=== PATIENT | male | born 1965 | race Caucasian/White ===

== ENCOUNTER 2018-10-11 16:21 | Emergency (ER) | payer BC ==
[2018-10-11] MEDS ORDERED: Sodium Chloride 0.9% 1,000 ML IV ONE (16:46)
[2018-10-11] MEDS ORDERED: Ondansetron 4 MG/2 ML SDV IVPUSH ONE (16:47)
[2018-10-11] MEDS ORDERED: Ketorolac 30 MG/ML SDV IVPUSH ONE (16:47)
--- NOTE | 2018-10-11 16:57 | EDM.PDOC ---
ED HPI GENERAL MEDICAL PROBLEM - General Chief Complaint: Genitourinary Problem Stated Complaint: STOMACH PAINS Time Seen by Provider: 10/11/18 16:31 Source of Information: Reports: Patient History Limitations: Reports: No Limitations - History of Present Illness INITIAL COMMENTS - FREE TEXT/NARRATIVE: HISTORY AND PHYSICAL: History of present illness: Patient is a 53-year-old male presents to the ED today with concern of right lower quadrant pain. Patient states he's had this right lower quadrant pain intermittently over the last 2 months but today the pain is now a 10 out of 10. Patient states he has vomited 2 times today due to the pain. Patient states many years ago he had issues with kidney stones but states that his pain today does not feel the same as when he had kidney stones in the past. Patient states he also has a history of migraines but denies any other health history. Patient states he has not taken anything today for his symptoms. Patient denies fever, chills, chest pain, shortness of breath, or cough. Denies headache, neck stiff ness, change in vision, syncope, or near syncope. Denies diarrhea, constipation, or dysuria. Has not noted any blood in urine or stool. Patient has been eating and drinking appropriately prior to onset of symptoms. Review of systems: As per history of present illness and below otherwise all systems reviewed and negative. Past medical history: As per history of present illness and as reviewed below otherwise noncontributory. Surgical history: As per history of present illness and as reviewed below otherwise noncontributory. Social history: See social history for further information Family history: As per history of present illness and as reviewed below otherwise noncontributory. Physical exam: General: Patient is alert, oriented, and in no acute distress. Patient sitting comfortably on exam table. HEENT: Atraumatic, normocephalic, pupils equal and reactive bilaterally, negative for conjunctival pallor or scleral icterus, mucous membranes dry, TMs normal bilaterally, throat clear, neck supple, nontender, trachea midline. No drooling or trismus noted. No meningeal signs. No hot potato voice noted. Lungs: Clear to auscultation, breath sounds equal bilaterally, chest nontender. Heart: S1S2, regular rate and rhythm without overt murmur Abdomen: Soft, nondistended. Moderate to severe pain to palpation of the right lower quadrant with guarding. Positive rebound. Negative for masses or hepatosplenomegaly. Negative for costovertebral tenderness. Pelvis: Stable nontender. Genitourinary: Deferred. Rectal: Deferred. Skin: Intact, warm, dry. No lesions or rashes noted. Extremities: Atraumatic, negative for cords or calf pain. Neurovascular unremarkable. Neuro: Awake, alert, oriented. Cranial nerves II through XII unremarkable. Cerebellum unremarkable. Motor and sensory unremarkable throughout. Exam nonfocal. Notes: Dr. Rangel verbally involved in patient care. Patient pain is well controlled in ED. Dr. Jeffrey, urology on-call, was consulted on patient. Per Dr. Jeffrey, will send home with Cipro as well as some pain medications for tonight. Patient is to remain NPO and [facility] at [address] Jeffrey will meet patient there. Voices understanding and is agreeable to plan of care. Denies any further questions or concerns at this time. Diagnostics: CBC, CMP, UA, EKG, troponin, chest x-ray, lipase, abd/pelvic CT Therapeutics: MS, Toradol, Zofran Prescription: Cipro, [place] #6 Impression: Ureterolithiasis Urinary Tract Infection Dehydration Nephrolithiasis Plan: 1. Take medication as prescribed. [facility] morning at 8am to meet with Dr. Metcalf. DO NOT eat or drink until you are seen by Dr. Metcalf. 2. You can also alternate ibuprofen and Tylenol as directed for pain and discomfort. 3. Return to the ED as needed and as discussed. Definitive disposition and diagnosis as appropriate pending reevaluation and review of above. Right Abdomen Pain Score (Numeric/FACES): 10 - Related Data Allergies Allergy/AdvReac Type Severity Reaction Status Date / Time No Known Allergies Allergy Verified 10/11/18 16:36 Home Meds: Home Meds SUMAtriptan Succinate [Imitrex] 4 mg IM ASDIRECTED PRN 10/11/18 [History] Past Medical History HEENT History: Reports: None Cardiovascular History: Reports: None Respiratory History: Reports: None Gastrointestinal History: Reports: None Genitourinary History: Reports: None, Renal Calculus Musculoskeletal History: Reports: None Neurological History: Reports: Migraines Psychiatric History: Reports: None Endocrine/Metabolic History: Reports: None Hematologic History: Reports: None Immunologic History: Reports: None Oncologic (Cancer) History: Reports: None Dermatologic History: Reports: None - Infectious Disease History Infectious Disease History: Reports: None - Past Surgical History Head Surgeries/Procedures: Reports: None Social & Family History - Tobacco Use Smoking Status *Q: Current Every Day Smoker Years of Tobacco use: 35 Packs/Tins Daily: 0.3 Second Hand Smoke Exposure: No - Caffeine Use Caffeine Use: Reports: Coffee - Recreational Drug Use Recreational Drug Use: No ED ROS GENERAL - Review of Systems Review Of Systems: ROS reveals no pertinent complaints other than HPI. ED EXAM, GENERAL - Physical Exam Exam: See Below (See dictation) Course - Vital Signs Last Recorded V/S: Last Vital Signs Temp 36.5 C 10/11/18 18:43 Pulse 66 10/11/18 18:43 Resp 20 10/11/18 16:33 BP 119/72 10/11/18 18:43 Pulse Ox 99 10/11/18 18:43 - Orders/Labs/Meds Orders: Active Orders 24 hr Category Date Time Status EKG Documentation Completion [RC] STAT Care 10/11/18 16:46 Active CULTURE URINE [RM] Stat Lab 10/11/18 16:44 Received Labs: Laboratory Tests 10/11/18 10/11/18 10/11/18 Range/Units 16:44 16:50 16:50 WBC 11.96 H (4.0-11.0) K/uL RBC 4.85 (4.50-5.90) M/uL Hgb 14.7 (13.0-17.0) g/dL Hct 42.3 (38.0-50.0) % MCV 87.2 (80.0-98.0) fL MCH 30.3 (27.0-32.0) pg MCHC 34.8 (31.0-37.0) g/dL RDW Std Deviation 41.7 (28.0-62.0) fl RDW Coeff of Yasimn 13 (11.0-15.0) % Plt Count 279 (150-400) K/uL MPV 9.70 (7.40-12.00) fL Neut % (Auto) 58.1 (48.0-80.0) % Lymph % (Auto) 31.5 (16.0-40.0) % Lanier % (Auto) 9.5 (0.0-15.0) % Eos % (Auto) 0.6 (0.0-7.0) % Baso % (Auto) 0.3 (0.0-1.5) % Neut # (Auto) 7.0 H (1.4-5.7) K/uL Lymph # (Auto) 3.8 H (0.6-2.4) K/uL Lanier # (Auto) 1.1 H (0.0-0.8) K/uL Eos # (Auto) 0.1 (0.0-0.7) K/uL Baso # (Auto) 0.0 (0.0-0.1) K/uL Nucleated RBC % 0.0 /100WBC Nucleated RBCs # 0 K/uL Sodium 142 (136-148) mmol/L Potassium 3.8 (3.5-5.1) mmol/L Chloride 105 (98-107) mmol/L Carbon Dioxide 23.5 (21.0-32.0) mmol/L BUN 20 H (7.0-18.0) mg/dL Creatinine 1.0 (0.8-1.3) mg/dL Est Cr Clr Drug Dosing 101.61 mL/min Estimated GFR (MDRD) > 60.0 ml/min Glucose 103 (74-106) mg/dL Calcium 10.0 (8.5-10.1) mg/dL Total Bilirubin 0.7 (0.2-1.0) mg/dL AST 16 (15-37) IU/L ALT 27 (14-63) IU/L Alkaline Phosphatase 57 (46-116) U/L Troponin I (0.000-0.056) ng/mL Total Protein 7.1 (6.4-8.2) g/dL Albumin 4.2 (3.4-5.0) g/dL Globulin 2.9 (2.6-4.0) g/dL Albumin/Globulin Ratio 1.4 (0.9-1.6) Lipase 142 (73-393) U/L Urine Color YELLOW Urine Appearance SLT CLOUDY Urine pH 5.5 (5.0-8.0) Ur Specific [place] 1.025 (1.001-1.035) Urine Protein 30 H (NEGATIVE) mg/dL Urine Glucose (UA) NEGATIVE (NEGATIVE) mg/dL Urine Ketones NEGATIVE (NEGATIVE) mg/dL Urine Occult Blood LARGE H (NEGATIVE) Urine Nitrite NEGATIVE (NEGATIVE) Urine Bilirubin NEGATIVE (NEGATIVE) Urine Urobilinogen 0.2 (<2.0) EU/dL Ur Leukocyte Esterase TRACE H (NEGATIVE) Urine RBC 12-17 (0-2/HPF) Urine WBC 3-6 (0-5/HPF) Ur Epithelial Cells RARE (NONE-FEW) Urine Bacteria RARE (NEGATIVE) 10/11/18 Range/Units 16:50 WBC (4.0-11.0) K/uL RBC (4.50-5.90) M/uL Hgb (13.0-17.0) g/dL Hct (38.0-50.0) % MCV (80.0-98.0) fL MCH (27.0-32.0) pg MCHC (31.0-37.0) g/dL RDW Std Deviation (28.0-62.0) fl RDW Coeff of Yasmin (11.0-15.0) % Plt Count (150-400) K/uL MPV (7.40-12.00) fL Neut % (Auto) (48.0-80.0) % Lymph % (Auto) (16.0-40.0) % Lanier % (Auto) (0.0-15.0) % Eos % (Auto) (0.0-7.0) % Baso % (Auto) (0.0-1.5) % Neut # (Auto) (1.4-5.7) K/uL Lymph # (Auto) (0.6-2.4) K/uL Lanier # (Auto) (0.0-0.8) K/uL Eos # (Auto) (0.0-0.7) K/uL Baso # (Auto) (0.0-0.1) K/uL Nucleated RBC % /100WBC Nucleated RBCs # K/uL Sodium (136-148) mmol/L Potassium (3.5-5.1) mmol/L Chloride (98-107) mmol/L Carbon Dioxide (21.0-32.0) mmol/L BUN (7.0-18.0) mg/dL Creatinine (0.8-1.3) mg/dL Est Cr Clr Drug Dosing mL/min Estimated GFR (MDRD) ml/min Glucose (74-106) mg/dL Calcium (8.5-10.1) mg/dL Total Bilirubin (0.2-1.0) mg/dL AST (15-37) IU/L ALT (14-63) IU/L Alkaline Phosphatase (46-116) U/L Troponin I < 0.050 (0.000-0.056) ng/mL Total Protein (6.4-8.2) g/dL Albumin (3.4-5.0) g/dL Globulin (2.6-4.0) g/dL Albumin/Globulin Ratio (0.9-1.6) Lipase (73-393) U/L Urine Color Urine Appearance Urine pH (5.0-8.0) Ur Specific [place] (1.001-1.035) Urine Protein (NEGATIVE) mg/dL Urine Glucose (UA) (NEGATIVE) mg/dL Urine Ketones (NEGATIVE) mg/dL Urine Occult Blood (NEGATIVE) Urine Nitrite (NEGATIVE) Urine Bilirubin (NEGATIVE) Urine Urobilinogen (<2.0) EU/dL Ur Leukocyte Esterase (NEGATIVE) Urine RBC (0-2/HPF) Urine WBC (0-5/HPF) Ur Epithelial Cells (NONE-FEW) Urine Bacteria (NEGATIVE) Meds: Medications Discontinued Medications Generic Name Dose Route Start Last Admin Trade Name Freq PRN Reason Stop Dose Admin Sodium Chloride 1,000 mls @ 999 mls/hr 10/11/18 16:46 10/11/18 16:58 Normal Saline IV 10/11/18 17:46 999 mls/hr BOLUS ONE Administration Iopamidol 100 ml 10/11/18 17:47 10/11/18 17:54 Isovue Multipack-370 (76%) IVPUSH 10/11/18 17:48 100 ml ONETIME STA Administration Ketorolac Tromethamine 30 mg 10/11/18 16:47 10/11/18 16:57 Toradol IVPUSH 10/11/18 16:48 30 mg ONETIME ONE Administration Ondansetron HCl 4 mg 10/11/18 16:47 10/11/18 16:57 Zofran IVPUSH 10/11/18 16:48 4 mg ONETIME ONE Administration Departure - Departure Time of Disposition: 19:04 Disposition: Home, Self-Care 01 Clinical Impression: Ureterolithiasis, Dehydration, Nephrolithiasis Urinary tract infection Qualifiers: Urinary tract infection type: acute cystitis Hematuria presence: without hematuria Qualified Code(s): N30.00 - Acute cystitis without hematuria - Discharge Information Referrals: PCP,None [Primary Care Provider] - Forms: ED Department Discharge Additional Instructions: The following information is given to patients seen in the emergency department who are being discharged to home. This information is to outline your options for follow-up care. We provide all patients seen in our emergency department with a follow-up referral. The need for follow-up, as well as the timing and circumstances, are variable depending upon the specifics of your emergency department visit. If you don't have a primary care physician on staff, we will provide you with a referral. We always advise you to contact your personal physician following an emergency department visit to inform them of the circumstance of the visit and for follow-up with them and/or the need for any referrals to a consulting specialist. The emergency department will also refer you to a specialist when appropriate. This referral assures that you have the opportunity for follow-up care with a specialist. All of these measure are taken in an effort to provide you with optimal care, which includes your follow-up. Under all circumstances we always encourage you to contact your private physician who remains a resource for coordinating your care. When calling for follow-up care, please make the office aware that this follow-up is from your recent emergency room visit. If for any reason you are refused follow-up, please contact the [facility] Emergency Department at and asked to speak to the emergency department charge nurse. [facility] [address] [place] [id number] [address] [facility] [address] [place] [id number] 1. Take medication as prescribed. [facility] as discussed tomorrow morning at 8am to meet with Dr. Metcalf. DO NOT eat or drink until you are seen by Dr. Metcalf. 2. You can also alternate ibuprofen and Tylenol as directed for pain and discomfort. 3. Return to the ED as needed and as discussed. - My Orders Last 24 Hours: My Active Orders 10/11/18 16:44 CULTURE URINE [RM] Stat 10/11/18 16:46 EKG Documentation Completion [RC] STAT - Assessment/Plan Last 24 Hours: My Active Orders 10/11/18 16:44 CULTURE URINE [RM] Stat 10/11/18 16:46 EKG Documentation Completion [RC] STAT
[2018-10-11 17:39] LABS: CHLORIDE,CL 105 mmol/L (98-107); SODIUM,NA 142 mmol/L (136-148)
[2018-10-11] MEDS ORDERED: Iopamidol 755 MG/ML 500 ML Multipack Bottle IVPUSH STA (17:47)
--- NOTE | 2018-10-11 18:40 | CT ---
INDICATION: Right lower quadrant pain with nausea and vomiting. Patient states history of calculi causing renal failure 5-6 years ago. COMPARISON: None available TECHNIQUE: CT examination of the abdomen and pelvis was performed with the uneventful intravenous administration of 100 cc of Isovue 370 while 3 mm thick axial sections were obtained from the lung bases through the pubic symphysis. Oral contrast was not administered. Please note that all CT scans at this facility use dose modulation, iterative reconstruction, and/or weight-based dosing when appropriate to reduce radiation dose to as low as reasonably achievable. FINDINGS: In the abdomen, the liver, spleen, pancreas, and adrenals are normal in appearance. There are bilateral renal calculi, with moderate right hydronephrosis and no hydronephrosis on the left. The calculus on the right located in the UPJ measures 9 x 7 millimeters and produces the hydronephrosis. A nonobstructive calculus in the left renal pelvis measures 14 x 10 millimeters. There is a tiny 1 millimeter nonobstructive calculus in the upper pole of the right kidney. The gallbladder is normal in appearance. The abdominal aorta is normal in caliber with no sign of dilatation. There is no sign of retroperitoneal mass or adenopathy. The stomach, loops of small bowel, and ascending and descending colon in the abdomen are normal in appearance. There is mild diverticulosis of the transverse colon with no sign of diverticulitis. In the pelvis, the appendix is normal in appearance with no sign of inflammatory process. The loops of small bowel and colon in the pelvis are normal in appearance. The prostate is normal in appearance. The urinary bladder is normal in appearance. There is no sign of pelvic or inguinal mass or adenopathy. There is mild patchy atelectasis in the posterior lung bases. There is mild scoliosis of the lumbar spine convex towards the right. There is mild disc degenerative disease throughout the lumbar spine. IMPRESSION: CT of the abdomen shows moderate right hydronephrosis from a right UPJ calculus measuring 9 x 7 millimeters. An additional tiny nonobstructive calculus is seen in the upper pole of the right kidney. The left kidney has a nonobstructive calculus in the renal pelvis measuring 14 x 10 millimeters. Mild diverticulosis of the transverse colon with no sign of diverticulitis. Normal CT of the pelvis with contrast. Please note that all CT scans at this facility use dose modulation, iterative reconstruction, and/or weight-based dosing when appropriate to reduce radiation dose to as low as reasonably achievable. Dictated by Sabas Otero MD @ Oct 11 2018 6:28PM Signed by Dr. Sabas Otero @ Oct 11 2018 6:37PM
--- NOTE | 2018-10-11 18:57 | CR ---
INDICATION: Chest pain. TECHNIQUE: PA chest. FINDINGS: Linear left basilar subsegmental atelectasis or fibrosis. No consolidative infiltrates or pneumothorax. Normal heart size and pulmonary vascular pattern with no pleural effusions. IMPRESSION: Minimal left basilar subsegmental atelectasis/fibrosis. Dictated by Beau King MD @ Oct 11 2018 6:53PM Signed by Dr. Beau King @ Oct 11 2018 6:54PM
== END 2018-10-11 19:15 | disposition home or self-care (01) ==
LOC: MW.ED 16:21
DX: N13.2 Hydronephrosis with renal and ureteral calculous obstruction (principal); N30.00 Acute cystitis without hematuria; E86.0 Dehydration; F17.210 Nicotine dependence, cigarettes, uncomplicated
CPT/HCPCS: 36415; 71045; 74177; 80053; 81001; 83690; 84484; 85025; 87086; 93005; 96361; 96374; 96375; 99284; J1885; J2405; J7040; Q9967

== ENCOUNTER 2018-10-12 08:32 | Day surgery (SDC) | payer BC ==
--- NOTE | 2018-10-12 09:51 | PCM.PREANE ---
Preanesthetic Assessment - Anesthesia/Transfusion/Family Hx Anesthesia History: Prior Anesthesia Without Reaction Family History of Anesthesia Reaction: No - Review of Systems General: No Symptoms Pulmonary: No Symptoms Cardiovascular: No Symptoms Gastrointestinal: Abdominal Pain Neurological: No Symptoms Other: Reports: None - Physical Assessment ASA Class: 2 Mental Status: Alert & Oriented x3 Airway Class: Mallampati = 2 Dentition: Reports: Normal Dentition ROM/Head Extension: Full Lungs: Clear to Auscultation, Normal Respiratory Effort Cardiovascular: Regular Rate, Regular Rhythm - Allergies Allergies/Adverse Reactions: Allergies Allergy/AdvReac Type Severity Reaction Status Date / Time No Known Allergies Allergy Verified 10/11/18 16:36 - Blood Blood Available: No - Anesthesia Plan Pre-Op Medication Ordered: None - Acknowledgements Anesthesia Type Planned: General Anesthesia Pt an Appropriate Candidate for the Planned Anesthesia: Yes Alternatives and Risks of Anesthesia Discussed w Pt/Guardian: Yes Pt/Guardian Understands and Agrees with Anesthesia Plan: Yes Additional Comments: PMH: seen in ED last pm, migraine, smoker, now with UTI and 9x7 mm proximal R ureteral stone at the [place]. Meds cipro and [place], NKDA PLAN: GET PreAnesthesia Questionnaire HEENT History: Reports: None Cardiovascular History: Reports: None Respiratory History: Reports: None Gastrointestinal History: Reports: None Genitourinary History: Reports: None, Renal Calculus Musculoskeletal History: Reports: None Neurological History: Reports: Migraines Psychiatric History: Reports: None Endocrine/Metabolic History: Reports: None Hematologic History: Reports: None Immunologic History: Reports: None Oncologic (Cancer) History: Reports: None Dermatologic History: Reports: None - Infectious Disease History Infectious Disease History: Reports: None - Past Surgical History Head Surgeries/Procedures: Reports: None - HOME MEDS Home Medications: Home Meds SUMAtriptan Succinate [Imitrex] 4 mg IM ASDIRECTED PRN 10/11/18 [History]
[2018-10-12] MEDS ORDERED: fentaNYL 100 MCG/2 ML SDV ONE (10:31)
[2018-10-12] MEDS ORDERED: Midazolam 1 MG/ML 2 ML SDV ONE (10:31)
[2018-10-12] MEDS ORDERED: Ketorolac 30 MG/ML SDV ONE (10:32)
[2018-10-12] MEDS ORDERED: Ondansetron 4 MG/2 ML SDV ONE (10:32)
[2018-10-12] MEDS ORDERED: Lidocaine 2% 5 ML SDV ONE (10:32)
[2018-10-12] MEDS ORDERED: Propofol 200 MG/20 ML SDV ONE (10:32)
[2018-10-12] MEDS ORDERED: Glycopyrrolate 0.2 MG/ML SDV ONE (10:32)
[2018-10-12] MEDS ORDERED: Lactated Ringers 1,000 ML IV SCH (10:45)
[2018-10-12] MEDS ORDERED: ceFAZolin 1 GM Vial ONE (10:56)
[2018-10-12] MEDS ORDERED: Sodium Chloride 0.9% 20 ML ONE (10:56)
[2018-10-12] MEDS ORDERED: Iopamidol 408 MG/ML 50 ML SDV ONE (10:59)
[2018-10-12] MEDS ORDERED: SUMATRIPTAN SUCCINATE 4 MG IM PRN (11:29)
--- NOTE | 2018-10-12 11:41 | PCM.POSTAN ---
POST ANESTHESIA ASSESSMENT - MENTAL STATUS Mental Status: Alert, Oriented - VITAL SIGNS Vital Signs: Last Vital Signs Temp 97.5 F 10/12/18 10:27 Pulse 68 10/12/18 11:36 Resp 16 10/12/18 11:36 BP 120/72 10/12/18 11:36 Pulse Ox 96 10/12/18 11:36 - RESPIRATORY Respiratory Status: Respiratory Rate WNL, Airway Patent, O2 Saturation Stable - CARDIOVASCULAR CV Status: Pulse Rate WNL, Blood Pressure Stable - GASTROINTESTINAL GI Status: No Symptoms - PAIN Pain Score: 0 - POST OP HYDRATION Hydration Status: Adequate & Stable - OBSERVATIONS Free Text/Narrative:: Pt stable for tx to phase II recovery.
--- NOTE | 2018-10-12 11:49 | OR ---
SURGEON: Tonio Sidhu M.D. DATE OF PROCEDURE: 10/12/2018 PREOPERATIVE DIAGNOSIS: Right obstructive ureteropelvic junction stone, 9 mm, plus left renal pelvis stone, 1.3 cm. POSTOPERATIVE DIAGNOSIS: Right obstructive ureteropelvic junction stone, 9 mm, plus left renal pelvis stone, 1.3 cm. OPERATION: Cystoscopy, double-J stent placement on the right. DESCRIPTION OF PROCEDURE: The patient was given general anesthesia. He was placed in dorsal lithotomy position, prepped and draped in sterile drapes. Cystourethroscopy was done that was normal. A guidewire was advanced in the right ureter, all the way up into the renal pelvis over which a 6-Pakistani 26 cm double-J stent was placed. Position was confirmed with fluoroscopy. The bladder was emptied, and the patient was moved to recovery room in good condition. PLAN: The office will call and schedule his ureteroscopy and laser lithotripsy. HUONG / TOSHIA /[id number]
--- NOTE | 2018-10-13 13:42 | CR ---
INDICATION: Cystoscopy with stent placement. IMPRESSION: 4.3 seconds fluoro time. One image showing the proximal margin of ureteral stent. Please see procedure notes for discussion. Dictated by Boston Jones MD @ Oct 13 2018 1:40PM Signed by Dr. Boston Jones @ Oct 13 2018 1:40PM
== END 2018-10-12 12:30 | disposition home or self-care (01) ==
LOC: MW.SDS 08:32
PROVIDERS: ATTEND Urology
DX: N20.2 Calculus of kidney with calculus of ureter (principal); N39.0 Urinary tract infection, site not specified; G43.909 Migraine, unspecified, not intractable, without status migrainosus
CPT/HCPCS: 52332; 76000; J0690; J1885; J2001; J2250; J2405; J2704; J3010; J3490; J7120; Q9966